=== PATIENT | female | born 1960 | race Caucasian/White ===

== ENCOUNTER 2018-10-28 10:08 | Emergency (ER) | payer OTHER ==
[~2018-10-28] VITALS: Ht 170.2 cm; Wt 83.6 kg
[2018-10-28 10:14] VITALS: BP 128/87; TEMP 97.5
[2018-10-28] MEDS ORDERED: LIPITOR20 MG PO (10:29)
[2018-10-28] MEDS ORDERED: MULTI VITAMINS1 TAB PO (10:29)
[2018-10-28] MEDS ORDERED: VITAMIN D31000 I1 PO (10:29)
[2018-10-28] MEDS ORDERED: DHEA 50 MG TAB1 EACH PO (10:29)
[2018-10-28] MEDS ORDERED: VITAMINC1000TA (10:30)
[2018-10-28] MEDS ORDERED: CEPHALEXIN500 M1 PO (10:56)
[2018-10-28 11:30] VITALS: PULSE 74
== END 2018-10-28 11:30 | disposition home or self-care (01) ==
LOC: COL.ER 10:08
DX: T24.202A Burn of second degree of unspecified site of left lower limb, except ankle and foot, initial encounter (principal); T31.0 Burns involving less than 10% of body surface; E78.5 Hyperlipidemia, unspecified; Z23 Encounter for immunization; X19.XXXA Contact with other heat and hot substances, initial encounter; Y92.810 Car as the place of occurrence of the external cause